=== PATIENT | female | born 1990 | race Caucasian/White ===

== ENCOUNTER 2017-04-09 10:51 | Outpatient (CLI) | payer OTHER ==
--- NOTE | 2017-04-10 09:46 | Nuclear Medicine Report ---
EXAM: TRIPLE-PHASE BONE SCAN LIMITED EXAM DATE: 04/09/2017 11:39 AM. CLINICAL HISTORY: Pain in the right lower arm/hand for 5 years. COMPARISON: None. TECHNIQUE: Patient was injected with 30 mCi of technetium 99m MDP intravenously with flow phase gamma camera imaging anteriorly over forearms and wrists, 5 seconds per frame for 1 minute. Subsequently, blood pool images of the forearms and wrists were obtained. The patient returned 3 hours later for mu ltiple spot images of forearms, wrists and elbows. FINDINGS: Flow Phase: There is superficial accumulation of tracer in the ventral aspect of the left forearm ext ending to the medial aspect of the elbow. The findings are consistent with the injection site. The di fferential diagnosis includes venous thrombosis, which is considered less likely as the tracer partia lly clears from the vessels. Tracer flow is otherwise symmetric. Blood Pool Phase: There is mild soft tissue accumulation in the medial aspect of the left arm in the same location as the vessels during the flow phase. Delayed Phase: There is no abnormal tracer accumulation in either elbow, wrist or forearm. There is a focus of well-circumscribed increased tracer uptake in the medullary cavity of the distal left humer us. X-ray is recommended for correlation. IMPRESSION: 1. Tracer accumulation in the left forearm veins on the arterial and tissue phases raises the possibi lity of venous thrombosis, and clinical correlation is recommended. 2. No abnormal tracer accumulation on the delayed phase to suggest fracture or complex regional pain syndrome. 3. Discrete focus of increased tracer uptake in the medullary cavity of the distal left humerus, sugg esting an intramedullary lesion such as fibrous dysplasia or an osteoma. Correlation with x-ray is re commended. [facility] Referring Provider Line: [phone] SITE ID: [id number]
== END 2017-04-09 10:52 | disposition home or self-care (01) ==
LOC: DI 10:51
PROVIDERS: ATTEND Internal Medicine Rheumatology
DX: M79.641 Pain in right hand (principal); M25.521 Pain in right elbow
CPT/HCPCS: 78315; A9503

== ENCOUNTER 2017-04-15 10:52 | Outpatient (CLI) | payer OTHER ==
--- NOTE | 2017-04-15 13:08 | XRAY Report ---
FRONTAL PELVIS: 04/15/2017 CLINICAL INDICATION: Back pain. FINDINGS: Frontal view of the pelvis demonstrates no evidence of fracture or dislocation. The joint spaces are unremarkable. No radiopaque foreign body is seen in the soft tissues. IMPRESSION: NORMAL PELVIS. NO EVIDENCE OF SI JOINT ABNORMALITY. JOB #: [id number] EXT JOB #:[id number]
== END 2017-04-15 10:53 | disposition home or self-care (01) ==
LOC: DI 10:52
PROVIDERS: ATTEND Internal Medicine Rheumatology
DX: M54.5 Low back pain (principal)
CPT/HCPCS: 72170